=== PATIENT | male | born 1960 ===

== ENCOUNTER 2017-01-07 16:50 | Emergency (ER) | payer MEDICAID ==
[2017-01-07 16:57] VITALS: PULSE 88; RESP 20; TEMP 97.8; O2SAT 98
[2017-01-07 17:27] VITALS: BP 146/87
--- NOTE | 2017-01-07 17:41 | ED PDOC ---
HPI: General Adult Time Seen by Provider: 01/07/17 17:15 Chief Complaint (Nursing): Lower Extremity Problem/Injury Chief Complaint (Provider): Boy pain for 1 year - As been seen multiple times by Dr. Marina History Per: Patient History/Exam Limitations: no limitations Onset/Duration Of Symptoms: Days, Waxing/Waning Have you had recent travel within the past 21 days to any of the following countries: [place], [place], [place] or [place]?: No Additional Complaint(s): Pt states he has tramadol but it is not working for the pain. Pt requesting something stronger and for lab work. Pt states he has had multiple labs done by Dr. Marina and has referral for specialist but has not gone. Past Medical History Reviewed: Historical Data, Nursing Documentation, Vital Signs Vital Signs: Last Vital Signs Temp 97.8 F 01/07/17 16:54 Pulse 88 01/07/17 17:27 Resp 20 01/07/17 16:54 BP 146/87 01/07/17 17:27 Pulse Ox 98 01/07/17 17:41 - Medical History PMH: Arthritis, Hypercholesterolemia - Surgical History Surgical History: No Surg Hx - Family History Family History: States: CAD - Living Arrangements Living Arrangements: With Family - Social History Current smoker - smoking cessation education provided: No Alcohol: None Drugs: Denies - Home Medications Home Medications: Ambulatory Orders Medication Instructions Recorded Acetaminophen [Tylenol Arthritis] 1 tab PO PRN PRN 01/07/17 Atorvastatin [Lipitor] 1 tab PO HS 01/07/17 Fenofibrate,Micronized 134 mg PO DAILY 01/07/17 [Fenofibrate] Ibuprofen/Famotidine [Duexis 1 tab PO TID PRN 01/07/17 800-26.6 mg Tablet] [facility]-3 Fatty Acids/Fish Oil [Eql 2 cap PO BID 01/07/17 [facility] Fish Oil 1,000 mg] Oxybutynin [Ditropan Tab] 1 tab PO DAILY 01/07/17 Tramadol HCl [Ultram] 1 tab PO TID PRN 01/07/17 - Allergies Allergies/Adverse Reactions: Allergies Allergy/AdvReac Type Severity Reaction Status Date / Time No Known Allergies Allergy Unverified 07/22/13 22:35 Review of Systems ROS Statement: Except As Marked, All Systems Reviewed And Found Negative Constitutional: Positive for: Other (Body pain) Physical Exam - Reviewed Nursing Documentation Reviewed: Yes Vital Signs Reviewed: Yes - Physical Exam Appears: Positive for: Well, Non-toxic, No Acute Distress Head Exam: Positive for: ATRAUMATIC, NORMAL INSPECTION, NORMOCEPHALIC Skin: Positive for: Normal Color, Warm, DRY Eye Exam: Positive for: Normal appearance ENT: Positive for: Normal ENT Inspection Neck: Positive for: Normal, Painless ROM Cardiovascular/Chest: Positive for: Regular Rate, Rhythm Respiratory: Positive for: CNT, Normal Breath Sounds Gastrointestinal/Abdominal: Positive for: Normal Exam, Bowel Sounds, Soft Back: Positive for: Normal Inspection. Negative for: Vertebral Tenderness, Muscle Spasm Extremity: Positive for: Normal ROM Neurologic/Psych: Positive for: Alert, Oriented - ECG O2 Sat by Pulse Oximetry: 98 Medical Decision Making Medical Decision Making: Discussed importance of f.u with specialist and Dr. Marina. Disposition - Clinical Impression Clinical Impression: Muscle pain - Patient ED Disposition Is Patient to be Admitted: No - Disposition Referrals: Grayson Corey MD [Staff Provider] - Disposition: Routine/Home Disposition Time: 17:39 Condition: GOOD Instructions: Musculoskeletal Pain (ED) Print Language: WOLOF
== END 2017-01-07 17:46 | disposition home or self-care (01) ==
LOC: H.ER 16:50
DX: M79.1 Myalgia (principal)

== ENCOUNTER 2018-01-30 12:46 | Emergency (ER) | payer OTHER ==
[2018-01-30 12:46] VITALS: BMI 30.4
[2018-01-30 12:53] VITALS: BP 125/82; PULSE 84; RESP 16; TEMP 98.1; O2SAT 97
--- NOTE | 2018-01-30 13:04 | ED PDOC ---
HPI: CCC, URI, Sore Throat Time Seen by Provider: 01/30/18 12:48 Chief Complaint (Nursing): ENT Problem Chief Complaint (Provider): Continued sore throat History Per: Patient History/Exam Limitations: no limitations Onset/Duration Of Symptoms: Days (9) Current Symptoms Are (Timing): Still Present Location Of Pain: Throat. denies: Sinus/es Sick Contacts (Context): None Associated Symptoms: Sore Throat. denies: Fever, Chills, Cough, Sputum, Sinus Drainage, Myalgias Ear Symptoms: Bilateral: None Additional Complaint(s): 57 yo male with no medical problems presents with continued sore throat. Pt was seen in ER and given 10 day course of augmentin which he is finishing tomorrow. Pt reports no fever but states the throat pain continues. Pts PMD is Dr. Marina but he has not seen him. Past Medical History Reviewed: Historical Data, Nursing Documentation, Vital Signs Vital Signs: Last Vital Signs Temp 98.1 F 01/30/18 12:51 Pulse 84 01/30/18 12:51 Resp 16 01/30/18 12:51 BP 125/82 01/30/18 12:51 Pulse Ox 97 01/30/18 12:51 - Medical History PMH: Arthritis, Hypercholesterolemia - Surgical History Surgical History: No Surg Hx - Family History Family History: States: CAD - Living Arrangements Living Arrangements: With Family - Social History Current smoker - smoking cessation education provided: No - Immunization History Hx Influenza Vaccination: Yes - Home Medications Home Medications: Ambulatory Orders Medication Instructions Recorded Acetaminophen [Tylenol Arthritis] 1 tab PO PRN PRN 01/07/17 Atorvastatin [Lipitor] 1 tab PO HS 01/07/17 Fenofibrate,Micronized 134 mg PO DAILY 01/07/17 [Fenofibrate] Ibuprofen/Famotidine [Duexis 1 tab PO TID PRN 01/07/17 800-26.6 mg Tablet] [place]-3 Fatty Acids/Fish Oil [Eql 2 cap PO BID 01/07/17 [place]-3 Fish Oil 1,000 mg] Oxybutynin [Ditropan Tab] 1 tab PO DAILY 01/07/17 Tramadol HCl [Ultram] 1 tab PO TID PRN 01/07/17 Amoxicillin/Clavulanate [Augmentin 1 tab PO BID #20 tab 01/22/18 875 MG-125 MG] Ibuprofen [Motrin] 600 mg PO Q6 PRN #20 tab 01/22/18 Fexofenadine/Pseudoephedrine 1 each PO BID PRN #12 tab.er.12h 01/30/18 [Allie-D 12 Hour Tablet] Prednisone 50 mg PO ONCE #1 tablet 01/30/18 - Allergies Allergies/Adverse Reactions: Allergies Allergy/AdvReac Type Severity Reaction Status Date / Time No Known Allergies Allergy Unverified 07/22/13 22:35 Review of Systems ROS Statement: Except As Marked, All Systems Reviewed And Found Negative Constitutional: Negative for: Fever, Chills ENT: Positive for: Throat Pain. Negative for: Ear Pain, Ear Discharge, Throat Swelling Physical Exam - Reviewed Nursing Documentation Reviewed: Yes Vital Signs Reviewed: Yes - Physical Exam Appears: Positive for: Well, Non-toxic, No Acute Distress Head Exam: Positive for: ATRAUMATIC, NORMAL INSPECTION, NORMOCEPHALIC Skin: Positive for: Normal Color, Warm, DRY Eye Exam: Positive for: Normal appearance ENT: Positive for: Normal ENT Inspection, Pharynx Is. Negative for: Pharyngeal Erythema, Tonsillar Exudate, Tonsillar Swelling Neck: Positive for: Normal, Painless ROM Cardiovascular/Chest: Positive for: Regular Rate, Rhythm Respiratory: Positive for: CNT, Normal Breath Sounds Gastrointestinal/Abdominal: Positive for: Normal Exam, Soft Back: Positive for: Normal Inspection Extremity: Positive for: Normal ROM Neurologic/Psych: Positive for: Alert, Oriented - ECG O2 Sat by Pulse Oximetry: 97 Medical Decision Making Medical Decision Making: Discussed f/u with Dr. Marina for further evaluation. Disposition - Clinical Impression Clinical Impression: Throat pain - Patient ED Disposition Is Patient to be Admitted: No Counseled Patient/Family Regarding: Diagnosis, Need For Followup - Disposition Disposition: Routine/Home Disposition Time: 13:04 Condition: STABLE Prescriptions: Fexofenadine/Pseudoephedrine [Allie-D 12 Hour Tablet] 1 each PO BID PRN #12 tab.er.12h PRN Reason: Cough And Congestion Prednisone 50 mg PO ONCE #1 tablet Instructions: Sore Throat in Adults Print Language: [place]TSERRATIAN
== END 2018-01-30 13:33 | disposition home or self-care (01) ==
LOC: H.ER 12:46
DX: J02.9 Acute pharyngitis, unspecified (principal); E78.00 Pure hypercholesterolemia, unspecified

== ENCOUNTER 2018-08-05 07:44 | Day surgery (SDC) | payer OTHER | END 2018-08-05 10:30 | disposition home or self-care (01) | LOC: H.ENDO 07:44 | PROVIDERS: ATTEND Internal Medicine Gastroenterology | DX: Z02.89 Encounter for other administrative examinations (principal) ==

== ENCOUNTER 2018-12-28 10:46 | Emergency (ER) | payer OTHER ==
[2018-12-28 10:49] VITALS: RESP 18; O2SAT 97
[2018-12-28 10:50] VITALS: BMI 33.4
--- NOTE | 2018-12-28 11:36 | ED PDOC ---
HPI: General Adult Time Seen by Provider: 12/28/18 11:09 Chief Complaint (Nursing): Pain, Chronic Chief Complaint (Provider): joint pain History Per: Patient History/Exam Limitations: no limitations Additional Complaint(s): 58 y/o M with hx of HL and arthritis who presents with worsening joint pain. Pt states that he has been having joint pain for the past 2 months. He saw his PMD who started him on Ibuprofen 800mg which he took but had abdominal discomfort so was given Tramadol prescribed twice daily. Pain improves with Tramadol temporarily but has been having worsening pain in B/L knees and hands over the past 10 days, worse in the morning and improves with activity but returns when he rests for too long. He has trouble bending down and fears that he will lose his job. He has been taking 4 Tramadol pills per day b/c the pain does not let him sleep. Denies fever, chills, night sweats, trauma. Past Medical History Reviewed: Historical Data, Nursing Documentation, Vital Signs Vital Signs: Last Vital Signs Temp 97.7 F 12/28/18 10:48 Pulse 74 12/28/18 10:48 Resp 18 12/28/18 10:48 BP 151/79 H 12/28/18 10:48 Pulse Ox 97 12/28/18 10:48 - Medical History PMH: Arthritis, Hypercholesterolemia Denies: Chronic Kidney Disease - Family History Family History: States: CAD - Immunization History Hx Influenza Vaccination: Yes - Home Medications Home Medications: Ambulatory Orders Medication Instructions Recorded Acetaminophen [Tylenol Arthritis] 1 tab PO PRN PRN 01/07/17 Atorvastatin [Lipitor] 1 tab PO HS 01/07/17 Fenofibrate,Micronized 134 mg PO DAILY 01/07/17 [Fenofibrate] Ibuprofen/Famotidine [Duexis 1 tab PO TID PRN 01/07/17 800-26.6 mg Tablet] [facility]-3 Fatty Acids/Fish Oil [Eql 2 cap PO BID 01/07/17 [facility] Fish Oil 1,000 mg] Oxybutynin [Ditropan Tab] 1 tab PO DAILY 01/07/17 Tramadol HCl [Ultram] 1 tab PO TID PRN 01/07/17 Amoxicillin/Clavulanate [Augmentin 1 tab PO BID #20 tab 01/22/18 875 MG-125 MG] Ibuprofen [Motrin] 600 mg PO Q6 PRN #20 tab 01/22/18 Fexofenadine/Pseudoephedrine 1 each PO BID PRN #12 tab.er.12h 01/30/18 [Allie-D 12 Hour Tablet] Prednisone 50 mg PO ONCE #1 tablet 01/30/18 Diclofenac Sodium [Diclofenac 100 mg PO DAILY PRN 7 Days 12/28/18 Sodium ER] tab.er.24h traMADol [Ultram] 50 mg PO BID PRN #6 tab 12/28/18 - Allergies Allergies/Adverse Reactions: Allergies Allergy/AdvReac Type Severity Reaction Status Date / Time No Known Allergies Allergy Unverified 07/22/13 22:35 Review of Systems Constitutional: Negative for: Fever, Chills Musculoskeletal: Positive for: Hand Pain, Other (knee pain) Physical Exam - Reviewed Nursing Documentation Reviewed: Yes Vital Signs Reviewed: Yes - Physical Exam Appears: Positive for: Uncomfortable Neck: Positive for: Normal, Painless ROM, Supple Back: Positive for: Normal Inspection. Negative for: Decreased ROM Extremity: Positive for: Normal ROM (normal flexion and extension of B/L MCP, PIP and DIP as well as B/L knees, ankles, ), Tenderness (on palpation of B/L medial and lateral knees. ), Capillary Refill (< 2 sec), Swelling (mild swelling at B/L MCPs, PIP, DIPs and knee. ). Negative for: Deformity - ECG O2 Sat by Pulse Oximetry: 97 Medical Decision Making Medical Decision Making: Toradol 30mg IM x 1 Pt advised that labs specific for joint pain would take several days to return and would not change management manager so that patient will need to follow up with his primary care doctor for further evaluation and treatment. Pt states that he has run out of his Tramadol. [place] [facility] website queried and patient last filled prescription for 60 pills of Tramadol on 12/14/18, consistent with patient admitting to taking 4 pills a day with worsening pain over the past 2 weeks. Patient counseled on Tramadol being a narcotic and addictive properties. He was advised to call Dr. Marina in 2 days for further evaluation and refills of Tramadol. He was advised to take Diclofenac in order to reduce need for narcotic, if he can tolerate it. Patient will be given 6 Tramadol pills upon discharge and again re-iterated addictive properties. Patient demonstrated understanding and will follow up ELDA. 12:15: re-assessed 1hr after given Toradol. Pt states that he feels some improvement. Stable for d/c home. Disposition - Clinical Impression Clinical Impression: Multiple joint pain - Patient ED Disposition Is Patient to be Admitted: No - Disposition Referrals: Devyn Marina MD [Family Provider] - Disposition: Routine/Home Disposition Time: 12:40 Condition: IMPROVED Additional Instructions: Follow up with Dr. Marina on Sunday12/30/18 for re-evaluation and further pain medication refills. Take Diclofenac with food as directed to help with pain. Return to ER if symptoms worsen or you develop fevers. Prescriptions: Diclofenac Sodium [Diclofenac Sodium ER] 100 mg PO DAILY PRN 7 Days tab.er.24h PRN Reason: Pain, Moderate (4-7) traMADol [Ultram] 50 mg PO BID PRN #6 tab PRN Reason: Pain, Severe (8-10) Instructions: Joint Pain Forms: [facility] ([place]se) Print Language: ARMENIAN
[2018-12-28 12:58] VITALS: BP 144/94; PULSE 67; TEMP 98.2
== END 2018-12-28 12:48 | disposition home or self-care (01) ==
LOC: H.ER 10:46
DX: M25.50 Pain in unspecified joint (principal); E78.00 Pure hypercholesterolemia, unspecified; Z82.49 Family history of ischemic heart disease and other diseases of the circulatory system
CPT/HCPCS: 96372; 99285; J1885